=== PATIENT | female | born 1995 | race Caucasian/White ===

== ENCOUNTER 2017-06-13 21:20 | Emergency (ER) | payer BC ==
[2017-06-13] MEDS ORDERED: Acetaminophen/Codeine 30-300mg Tablet ONE (21:48)
== END 2017-06-13 22:09 | disposition home or self-care (01) ==
LOC: ERS 21:20
DX: M79.675 Pain in left toe(s) (principal); M79.674 Pain in right toe(s); F41.9 Anxiety disorder, unspecified; F90.9 Attention-deficit hyperactivity disorder, unspecified type; Z79.899 Other long term (current) drug therapy
CPT/HCPCS: 99283

== ENCOUNTER 2017-12-03 21:13 | Emergency (ER) | payer BC ==
[2017-12-03 21:48] LABS: Bilirubin Negative (Negative); Blood, Urine Negative (Negative); Clarity CLEAR (Clear); Glucose, Urine (Dipstick) Negative (Negative); Leukocyte Negative (Negative); Nitrite Negative (Negative); Protein, Urine (Dipstick) Negative (Neg-Trace); Specific Gravity, Urine 1.004 (1.002-1.036); Urobilinogen 0.2 mg/dL (0.2-1.0)
== END 2017-12-04 00:02 | disposition home or self-care (01) ==
LOC: ERS 21:13
DX: O12.02 Gestational edema, second trimester (principal); O99.342 Other mental disorders complicating pregnancy, second trimester; F41.9 Anxiety disorder, unspecified; F90.9 Attention-deficit hyperactivity disorder, unspecified type; Z79.899 Other long term (current) drug therapy; Z3A.20 20 weeks gestation of pregnancy
CPT/HCPCS: 81003; 93005